=== PATIENT | male | born 1990 | race Caucasian/White ===

== ENCOUNTER 2025-02-20 09:26 | Day surgery (SDC) | payer OTHER ==
[2025-02-20] MEDS ORDERED: Lactated Ringers 1,000 ML IV ONE (09:31)
[2025-02-20 09:49] VITALS: RESP 16
[2025-02-20] MEDS: Lactated Ringers 1,000 ML IV ONE (09:55)
[2025-02-20] MEDS ORDERED: Sensorcaine 0.25% 10 ML ONE (11:16)
[2025-02-20] MEDS ORDERED: propofoL IV ONE (12:04)
[2025-02-20] MEDS ORDERED: Versed 2 MG/2 ML Injection ONE (12:05)
[2025-02-20] MEDS ORDERED: SUBLIMAZE 100 MCG/2 ML ONE (12:05)
[2025-02-20] MEDS ORDERED: ROCURONIUM BROMIDE IV ONE ×2 (12:06→12:37)
[2025-02-20] MEDS ORDERED: Zofran 4 MG/2 ML VIAL ONE (12:28)
[2025-02-20] MEDS ORDERED: Cleocin Phosphate IV 600 MG/4 ML ONE (12:36)
[2025-02-20] MEDS ORDERED: CLINDAMYCIN-D5W 900 MG/50 ML*** 900 MG/50 ML BAG IV ONE (12:38)
[2025-02-20] MEDS ORDERED: BRIDION 200MG/2ML IV ONE (12:51)
[2025-02-20 13:59] VITALS: O2SAT 98
[2025-02-20 14:14] VITALS: BP 118/75; PULSE 74; TEMP 98.2
--- NOTE | 2025-02-21 12:26 | HP ---
HISTORY OF PRESENT ILLNESS: A 34-year-old who had cyst excision in January in his primary care's office, a couple of weeks later had reaccumulation and drainage in the office, now persistent ruptured cyst site back. He is referred for wider reexcision in the area. PAST MEDICAL HISTORY: Denied any other chronic illness. HOME MEDICATIONS: None on a regular basis. He has been on some antibiotics in the past. ALLERGIES: No known drug allergies. PAST SURGICAL HISTORY: Other than the above-mentioned procedures denied any other procedures. SOCIAL HISTORY: A 1 pack-day smoker. Occasional alcohol use. FAMILY HISTORY: Negative. REVIEW OF SYSTEMS: Twelve systems reviewed. Pertinent for problem as above. PHYSICAL EXAMINATION: GENERAL: Height 6 feet 1 inch. BMI 35.62. No acute distress. HEENT: Sclerae anicteric. NECK: No JVD. CARDIOVASCULAR: Regular rate and rhythm. RESPIRATORY: Equal excursion, nonlabored breathing. ABDOMEN: Soft. EXTREMITIES: No cyanosis or edema. NEUROLOGIC: Alert and oriented, moving extremities symmetrically. PSYCHIATRIC: Appropriate mood and affect. IMPRESSION: Midback vertical scar is dry. There is an opening that is to the left of this, a couple of centimeters away to the right is a vertical scar. It is soft, draining a small amount of purulence. Persistent residual ruptured cyst site. Recommend excision in the OR. Risk of bleeding, infection; possibility may need packing even in wide area; risk of hematoma, seroma formation, aches and pains, as well as anesthesia, DVT, PE, pneumonia, but no limited to. He understands there is a real risk of needing to pack this perioperatively but if we are able to get rid of any residual cyst wall he will have a lot better chance of healing the wound long-term. He understands there is possibility of getting other cysts at other sites or adjacent to. General risk of anesthesia, DVT, PE, pneumonia, aches and pains, not limited to. He is agreeable with planned procedure. We will proceed under general anesthesia excisional biopsy of persistent residual of ruptured cyst site back, possible packing, when OR time available.
--- NOTE | 2025-02-22 09:33 | OP ---
SURGERY DATE/TIME: 02/20/2025 [id number] PREOPERATIVE DIAGNOSIS: Draining persistent ruptured cyst site, back. POSTOPERATIVE DIAGNOSIS: Draining persistent ruptured cyst site, back. PROCEDURE: Excisional biopsy of infected ruptured back cyst site (approximately 6 cm with margins). SURGEON: Kamari Yousif MD ANESTHESIA: General. ESTIMATED BLOOD LOSS: Minimal. INDICATIONS: Site was noted preoperatively. DESCRIPTION OF PROCEDURE AND FINDINGS: He was taken to the operating room, general anesthesia induced, placed in prone position. He was prepped and draped in usual sterile fashion. After official time-out, no disagreement in planned procedure. This is draining lateral to the patient's prior vertical incision from a previous procedure in his primary's office. A spindle-shaped excision and a little bit of skin around this draining site. Dissection was carried down around this very large ruptured cyst site sac which measured about 6 cm in size in vivo. It was decompressed with a suction block breaker operator. Fortunately, however, was able to get clear out around it down to normal-appearing fascia beneath with normal subcutaneous around each edge. It was irrigated with copious amount of sterile saline. Hemostasis controlled with some pinpoint cautery. Good hemostasis noted. It was felt it warranted closure with leaving some packing strips. He did have some infection in it. It was rinsed out well with margins, there was no residual cyst wall material at this time. It was closed with some interrupted 2-0 and 3-0 Vicryl, closing the deep subcutaneous down to the level of fascia. Skin was closed with 4-0 Vicryl in a combination of interrupted and running fashion, leaving some openings in the center part to put some 1/4-inch iodoform packing, was placed down in between at 2 different spots with sterile safety pins, avoiding any loosing of the packing. The patient's friend or family in the waiting area was instructed needs to be pulled back 1 cm a day until out all the way starting on postoperative day #2, otherwise dry dressing daily and p.r.n. To reinforce the area given the location on the back, after the 4-0 and the 2-0 Vicryl had been placed, the skin was reinforced with interrupted 3-0 Prolene. Steri-Strips and sterile dressing applied. Marcaine 0.25% local infiltrated around the area. Patient tolerated the procedure well. We will keep him on some oral antibiotics. The family or friend out in the waiting area was instructed that should he break this down or break it apart it would need some normal saline, wet-to-dry packing and healing from the bottom up. Otherwise, he avoids heavy lifting and straining and to keep the area together, gradually pull the packing out 1 cm a day until out starting on postoperative day #2.
== END 2025-02-20 14:25 | disposition home or self-care (01) ==
LOC: SDC 09:26
PROVIDERS: ATTEND Surgery
DX: L72.3 Sebaceous cyst (principal)